=== PATIENT | female | born 1965 | race Two or more races ===

== ENCOUNTER 2021-02-27 15:37 | Emergency (ER) | payer OTHER ==
[~2021-02-27] VITALS: Ht 162.6 cm; Wt 57.0 kg
[2021-02-27 15:41] VITALS: BP 99/55
== END 2021-02-27 17:25 | disposition left against medical advice (07) ==
LOC: ER 15:37
DX: R68.89 Other general symptoms and signs (principal); Z53.21 Procedure and treatment not carried out due to patient leaving prior to being seen by health care provider